=== PATIENT | male | born 1960 | race Caucasian/White ===

== ENCOUNTER 2022-02-15 19:34 | Inpatient (IN) | payer MEDICARE ==
[2022-02-15 20:40] LABS: #Eosinphils 0.1 10x3/uL (0.0-0.5); #Monocytes 0.2 10x3/uL (0.0-1.1); %Eosinophils 7.2 % (0.0-6.0); %Lymphocytes 13.2 % (18.0-47.0); %Monocytes 12.5 % (0.0-10.0); %Neutrophils 65.1 % (40.0-75.0); Hemoglobin 9.3 g/dL (13.5-17.5); Mean Corpuscular HGB CONC 31.8 g/dL (32.0-36.0); Mean Corpuscular Volume 97.3 fl (81.2-95.1); Mean Platelet Volume 10.9 fl (7.4-10.4); Platelet Count 68 10x3/uL (150-450); RBC Distribution Width 16.1 % (11.5-14.5); White Blood Cell (WBC) Count 1.5 10x3/uL (3.5-10.5)
[2022-02-15] MEDS ORDERED: Acetaminophen 500 MG TAB ONE (20:40)
[2022-02-15] MEDS ORDERED: Cefepime 2 GM VIAL ONE (20:40)
[2022-02-15 20:58] LABS: AST (SGOT) 63 U/L (5-34); Anion Gap 17 mmol/L (10-20); Bilirubin, Total 0.5 mg/dL (0.2-1.2); Calcium 8.5 mg/dL (7.8-10.44); Carbon Dioxide 21 mmol/L (23-31); Chloride 108 mmol/L (98-107); Potassium 3.8 mmol/L (3.5-5.1); Sodium 142 mmol/L (136-145)
[2022-02-15 21:13] LABS: ALT (SGPT) 67 U/L (8-55); Albumin 3.3 g/dL (3.4-4.8); Alkaline Phosphatase 210 U/L (40-110); BUN (Urea Nitrogen) 30 mg/dL (8.4-25.7); Calc. Creatinine Clearance 0 mL/min (70-130); Estimated GFR 26; Globulin 2.5 g/dL (2.4-3.5); Glucose 133 mg/dL (80-115); Protein, Total 5.8 g/dL (5.8-8.1)
[2022-02-15 21:22] LABS: Hypochromia SLIGHT = 6-15 cells (100X) (0-5/hpf); Microcytosis SLIGHT = 6-15 cells (100X) (0-5/hpf); Platelet Morphology Comment Appears Decreased
[2022-02-15] MEDS ORDERED: PEMETREXED IV SCH (23:45)
[2022-02-15] MEDS ORDERED: Vancomycin 1 GM in Premix Bag 1 BAG IVPB SCH (23:45)
[2022-02-15] MEDS ORDERED: Ondansetron ODT 4 MG TAB PO PRN (23:51)
[2022-02-15] MEDS ORDERED: Senokot S 8.6-50 MG TAB PO PRN (23:51)
[2022-02-15] MEDS ORDERED: Ondansetron PF 4 MG/2 ML Vial IVP PRN (23:51)
[2022-02-16 00:07] VITALS: BMI 32.8
[2022-02-16] MEDS ORDERED: valACYclovir 500 MG TAB PO SCH (00:15)
[2022-02-16] MEDS ORDERED: Vancomycin HCl 500 MG in Sodium Chloride 0.9% 100 ML IVPB SCH (00:30)
[2022-02-16 00:56] LABS: Magnesium 1.9 mg/dL (1.6-2.6)
[2022-02-16 05:08] LABS: Anion Gap 13 mmol/L (10-20); BUN (Urea Nitrogen) 27 mg/dL (8.4-25.7); Calc. Creatinine Clearance 43 mL/min (70-130); Calcium 9.1 mg/dL (7.8-10.44); Carbon Dioxide 21 mmol/L (23-31); Chloride 110 mmol/L (98-107); Estimated GFR 28; Glucose 94 mg/dL (80-115); Potassium 3.3 mmol/L (3.5-5.1); Sodium 141 mmol/L (136-145)
[2022-02-16 05:11] LABS: #Eosinphils 0.2 10x3/uL (0.0-0.5); #Monocytes 0.1 10x3/uL (0.0-1.1); #Neutrophils 0.9 10x3/uL (1.5-8.4); %Basophils 0.7 % (0.0-2.0); %Eosinophils 11.1 % (0.0-6.0); %Lymphocytes 15.6 % (18.0-47.0); %Monocytes 6.7 % (0.0-10.0); %Neutrophils 64.4 % (40.0-75.0); Mean Corpuscular HGB CONC 31.6 g/dL (32.0-36.0); Mean Corpuscular Hemoglobin 31.4 pg (27.0-33.0); Mean Corpuscular Volume 99.3 fl (81.2-95.1); Mean Platelet Volume 9.5 fl (7.4-10.4); Platelet Count 54 10x3/uL (150-450); RBC Distribution Width 15.9 % (11.5-14.5); Red Blood Cell (RBC) Count 2.87 10x6/uL (4.32-5.72); White Blood Cell (WBC) Count 1.4 10x3/uL (3.5-10.5)
[2022-02-16 05:28] LABS: MDiff Complete? YES
[2022-02-16 07:23] LABS: Band 2 % (5-11); Eosinophils 6 % (0-10); Lymphocytes 14 % (21-51); Monocytes 4 % (0-10); Neutrophil 72 % (42-75); Reactive Lymphocytes 2 % (0-10)
[2022-02-16 07:25] LABS: Hypochromia SLIGHT = 6-15 cells (100X) (0-5/hpf); Microcytosis SLIGHT = 6-15 cells (100X) (0-5/hpf); Platelet Morphology Comment Appears Decreased
[2022-02-16] MEDS ORDERED: Potassium Chloride 20 MEQ TAB PO SCH (09:00)
[2022-02-16] MEDS ORDERED: Enoxaparin Sodium 40 MG/0.4 ML SYRINGE SC SCH (09:00)
[2022-02-16] MEDS ORDERED: Enoxaparin Sodium 30 MG/0.3 ML SYRINGE SC SCH (09:00)
[2022-02-16] MEDS: Loratadine 10 MG TAB PO SCH (10:06)
[2022-02-16] MEDS: Multivitamin W/ Minerals 1 TAB PO SCH (10:06)
[2022-02-16] MEDS: PARoxetine 20 MG TAB PO SCH (10:06)
[2022-02-16] MEDS: Cholecalciferol 1,000 UNITS (25 MCG) TAB PO SCH (10:06)
[2022-02-16] MEDS: Cefepime 2 GM in Sodium Chloride 0.9% 100 ML IVPB SCH ×2 (10:06→20:11)
[2022-02-16] MEDS: Amlodipine 5 MG TAB PO SCH (10:08)
[2022-02-16] MEDS: Tamsulosin HCl 0.4 MG CAP PO SCH (11:06)
[2022-02-16] MEDS: Melatonin 3 MG TAB PO SCH (20:11)
[2022-02-16] MEDS: Atorvastatin Calcium 40 MG TAB PO SCH (20:11)
[2022-02-16] MEDS: diphenhydrAMINE 25 MG CAP PO PRN (20:11)
[2022-02-16] MEDS: valACYclovir 500 MG TAB PO SCH (20:11)
[2022-02-16] MEDS ORDERED: Vancomycin 1.5 GRAM/300 ML BAG 1.5 GM in Premix Bag 1 BAG IVPB SCH (22:00)
[2022-02-17] MEDS ORDERED: Sodium Chloride 0.9% 500 ML IVPB SCH (02:00)
[2022-02-17] MEDS: diphenhydrAMINE 25 MG CAP PO PRN ×3 (03:51→23:05)
[2022-02-17 07:51] LABS: #Eosinphils 0.1 10x3/uL (0.0-0.5); #Monocytes 0.2 10x3/uL (0.0-1.1); #Neutrophils 1.1 10x3/uL (1.5-8.4); %Eosinophils 6.4 % (0.0-6.0); %Lymphocytes 12.8 % (18.0-47.0); %Monocytes 10.9 % (0.0-10.0); %Neutrophils 67.3 % (40.0-75.0); Hemoglobin 9.1 g/dL (13.5-17.5); Mean Corpuscular HGB CONC 30.7 g/dL (32.0-36.0); Mean Corpuscular Hemoglobin 30.4 pg (27.0-33.0); Mean Platelet Volume 10.1 fl (7.4-10.4); Platelet Count 45 10x3/uL (150-450); RBC Distribution Width 15.9 % (11.5-14.5); Red Blood Cell (RBC) Count 2.99 10x6/uL (4.32-5.72); White Blood Cell (WBC) Count 1.6 10x3/uL (3.5-10.5)
[2022-02-17 07:52] LABS: Reflex for Review?? YES
[2022-02-17 09:40] LABS: Anion Gap 14 mmol/L (10-20); BUN (Urea Nitrogen) 24 mg/dL (8.4-25.7); Calc. Creatinine Clearance 46 mL/min (70-130); Calcium 9.7 mg/dL (7.8-10.44); Carbon Dioxide 21 mmol/L (23-31); Chloride 112 mmol/L (98-107); Estimated GFR 30; Glucose 109 mg/dL (80-115); Potassium 4.4 mmol/L (3.5-5.1); Sodium 143 mmol/L (136-145)
[2022-02-17] MEDS: Amlodipine 5 MG TAB PO SCH (09:44)
[2022-02-17] MEDS: Cefepime 2 GM in Sodium Chloride 0.9% 100 ML IVPB SCH (09:44)
[2022-02-17] MEDS: Cholecalciferol 1,000 UNITS (25 MCG) TAB PO SCH (09:45)
[2022-02-17] MEDS: Multivitamin W/ Minerals 1 TAB PO SCH (09:45)
[2022-02-17] MEDS: Loratadine 10 MG TAB PO SCH (09:45)
[2022-02-17] MEDS: PARoxetine 20 MG TAB PO SCH (09:45)
[2022-02-17] MEDS: Tamsulosin HCl 0.4 MG CAP PO SCH (09:46)
[2022-02-17] MEDS ORDERED: diphenhydrAMINE 10 MG in Sodium Chloride 0.9% 50 ML IVPB PRN (14:38)
[2022-02-17] MEDS ORDERED: diphenhydrAMINE 50 MG/ML VIAL IVP PRN (15:21)
[2022-02-17] MEDS: Clindamycin/D5W 900 MG in Premix Bag 1 BAG IVPB SCH ×2 (16:25→21:54)
[2022-02-17] MEDS: Melatonin 3 MG TAB PO SCH (21:54)
[2022-02-17] MEDS: Atorvastatin Calcium 40 MG TAB PO SCH (21:54)
[2022-02-17] MEDS: valACYclovir 500 MG TAB PO SCH (21:54)
[2022-02-17] MEDS ORDERED: Vancomycin 1.5 GRAM/300 ML BAG IVPB SCH (23:45)
[2022-02-18] MEDS: Clindamycin/D5W 900 MG in Premix Bag 1 BAG IVPB SCH (06:22)
[2022-02-18] MEDS: diphenhydrAMINE 25 MG CAP PO PRN (06:33)
[2022-02-18] MEDS: Tamsulosin HCl 0.4 MG CAP PO SCH (08:39)
[2022-02-18] MEDS: Multivitamin W/ Minerals 1 TAB PO SCH (08:39)
[2022-02-18] MEDS: Amlodipine 5 MG TAB PO SCH (08:39)
[2022-02-18] MEDS: Cholecalciferol 1,000 UNITS (25 MCG) TAB PO SCH (08:39)
[2022-02-18] MEDS: PARoxetine 20 MG TAB PO SCH (08:39)
[2022-02-18] MEDS: Loratadine 10 MG TAB PO SCH (08:40)
[2022-02-18 09:38] VITALS: BP 124/80; TEMP 97.4
[2022-02-18] MEDS ORDERED: methylPREDNISolone Sod Succ/PF 125 MG/2 ML VIAL IVP SCH (15:00)
== END 2022-02-18 12:25 | disposition home or self-care (01) | DRG 871 ==
LOC: CSHERS 19:34 → CSHTELE 23:41
PROVIDERS: ADMIT Family Medicine; ATTEND Internal Medicine
DX: A41.9 Sepsis, unspecified organism (principal); D61.810 Antineoplastic chemotherapy induced pancytopenia; J18.9 Pneumonia, unspecified organism; J96.01 Acute respiratory failure with hypoxia; L03.313 Cellulitis of chest wall; C34.90 Malignant neoplasm of unspecified part of unspecified bronchus or lung; C79.51 Secondary malignant neoplasm of bone; D70.9 Neutropenia, unspecified; R50.81 Fever presenting with conditions classified elsewhere; E78.5 Hyperlipidemia, unspecified; L27.1 Localized skin eruption due to drugs and medicaments taken internally; T36.1X5A Adverse effect of cephalosporins and other beta-lactam antibiotics, initial encounter; Z20.822 Contact with and (suspected) exposure to COVID-19; R53.81 Other malaise; I10 Essential (primary) hypertension; N40.0 Benign prostatic hyperplasia without lower urinary tract symptoms; Z90.89 Acquired absence of other organs; Z98.890 Other specified postprocedural states; Z87.891 Personal history of nicotine dependence; Z88.8 Allergy status to other drugs, medicaments and biological substances; Z79.899 Other long term (current) drug therapy; Z88.5 Allergy status to narcotic agent; Z80.42 Family history of malignant neoplasm of prostate; Z80.3 Family history of malignant neoplasm of breast; Z80.8 Family history of malignant neoplasm of other organs or systems
CPT/HCPCS: 36415; 71045; 71250; 80048; 80053; 82565; 83605; 83735; 83880; 84145; 84484; 85025; 85060; 87040; 87086; 93005; 93010; 93306; J0692; J1200; J3370; J3490; J7030; U0003; U0005